=== PATIENT | male | born 1980 | race Caucasian/White ===

== ENCOUNTER 2017-08-25 18:36 | Emergency (ER) | payer MEDICAID, OTHER ==
[2017-08-25 18:55] VITALS: RESP 16
--- NOTE | 2017-08-25 20:16 | EDPHY ---
H & P Time Seen by Provider: 08/25/17 18:49 HPI/ROS: This patient was at work on a ladder that was placed on a deck and the ladder tipped over as it collapsed-toe scoping latter causing the patient to fall onto his left hip and strike his occiput against the wooden deck. He was briefly dazed but had no loss of consciousness. He complains of a occipital headache 5/ 10 intensity, posterior neck pain 5/10 intensity and 6/10 left lateral hip pain with worsening pain when he walks. He took 800 mg of Motrin and 2 Tylenol prior to arrival with partial relief of symptoms. The incident occurred at 4: 30 p.m. the day of evaluation. He came here by private vehicle for further evaluation. ROS: Constitutional: He felt well prior to the fall. HEENT: He denies any visual changes. No tinnitus. No dental injuries or nasal injuries. Neuro: No confusion. No focal weakness. No bowel or bladder incontinence. No LOC. Musculoskeletal: No extremity injuries other than the left hip. Integumentary: No lacerations or abrasions. 7 point ROS is otherwise negative Past Medical/Surgical History: IV drug abuse. He reports his last use of IV drugs was last October. However , he admits shooting IV ice water explaining that he feels still at an addiction to the procedure of shooting IV drugs. He admits that he does not use sterile technique with this. Social History: IV drug abuse. He reports no drug abuse in the last few months and no IV drug abuse since last October though is still injecting IV ice water as noted above. Smoking Status: Heavy smoker Physical Exam: Physical exam: Vital signs are normal General: Patient is in no acute distress. HEENT: Is no external evidence of trauma on exam except for occipital tenderness without significant hematoma, laceration or abrasion. Nose atraumatic. Ears: Clear bilaterally with no hemotympanum. Oropharynx: No dental trauma or malocclusion. No intraoral lacerations. Eyes: Pupils are equal and reactive to light. Extraocular motions are intact. Optic fundi: Clear with no papilledema or hemorrhage. Neck: Patient has paraspinous muscular tenderness bilaterally that extends the trapezium more than midline tenderness. He has mild midline tenderness. After neck is radiographically cleared, patient maintains good range of motion without significant increase in his pain. Lungs: Clear to auscultation bilaterally Cardiac: Regular rate and rhythm no murmur gallop or rub. Chest: Nontender. Abdomen: Soft nontender no organomegaly Back: Nontender Pelvis: No instability. No pain with anterior compression of iliac crest sore pubic symphysis. Skin: Track beach in the antecubital regions Extremities: Atraumatic except for left hip Left hip: No for shortening of the left leg or malrotation. Patient has lateral tenderness to the hip. Neuro: GCS of 15. Cranial nerves II through XII intact. Cerebellar exam is normal as judged by symmetric rapid hand movements bilaterally. No pronator drift. Patient maintains 2+ symmetric brachioradialis, biceps, triceps and patellar DTRs bilaterally. No sensory or motor deficits are appreciated. Initial differential diagnosis: Concussion without LOC, doubt cerebral contusion or skull fracture, cervical muscle strain, doubt cervical fracture, left hip contusion, doubt hip fracture Constitutional: Initial Vital Signs Temperature (C) 36.6 C 08/25/17 18:48 Heart Rate 95 08/25/17 18:48 Respiratory Rate 16 08/25/17 18:48 Blood Pressure 121/79 H 08/25/17 18:48 O2 Sat (%) 95 08/25/17 18:48 O2 Delivery Mode Room Air Allergies/Adverse Reactions: No Known Allergies Allergy (Verified 08/25/17 18:47) Home Medications: Medication Instructions Recorded Suboxone 8 mg-2 mg Tablet 08/25/17 Tizanidine HCl [Zanaflex] 4 mg PO TID PRN #20 capsule 08/25/17 MDM/Departure - MDM Diagnostics: Cervical spine x-rays: Negative for fracture by my interpretation Left hip x-rays: Negative for fracture by my interpretation Imaging Results: Imaging Impressions Cervical Spine X-Ray 08/25/17 19:16 Impression: Negative for fracture. Hip X-Ray 08/25/17 19:17 Impression: Negative for fracture. Imaging: I viewed and interpreted images myself ED Course/Re-evaluation: Discussion: Patient is admitted findings are consistent with concussion without LOC without any red flag findings-no perseveration, no focal findings or other concerning findings. We ruled out cervical fracture with x-rays. He has no radiculopathy on exam. Hip findings are consistent with contusion without evidence of fracture or other concerning injuries. I strongly urged the patient to stop shooting any substances in his veins including sterile water explaining the risk of bacteremia, endocarditis etc. He absolutely cannot resist sheeting IV ice water, I urged him to use sterile technique including alcohol swab. - Depart Disposition: Home, Routine, Self-Care Clinical Impression: Concussion Qualifiers: Encounter type: initial encounter Loss of consciousness presence/duration: without LOC Qualified Code(s): S06.0X0A - Concussion without loss of consciousness, initial encounter Cervical muscle strain Qualifiers: Encounter type: initial encounter Qualified Code(s): S16.1XXA - Strain of muscle, fascia and tendon at neck level, initial encounter Contusion, hip Qualifiers: Encounter type: initial encounter Laterality: left Qualified Code(s): S70.02XA - Contusion of left hip, initial encounter Condition: Good Instructions: Tizanidine (By mouth), Cervical Strain (ED), Concussion (ED) Additional Instructions: Diagnoses: 1. Concussion 2. Neck muscle strain 3. Hip contusion Plan: No work for the next 2-3 days. Follow up with work comp clinic for recheck Tylenol ibuprofen for pain as needed Skelaxin muscle relaxant in addition if needed for neck pain. Avoid activities but she risk for recurrent head injury for 7 days after resolution of her current symptoms. Return emergency department if he develops unbearable headache despite over-the- counter medications, vomiting more than twice, confusion or other concerns. Prescriptions: Tizanidine HCl [Zanaflex] 4 mg PO TID PRN #20 capsule PRN Reason: muscle spasm Referrals: NONE *PRIMARY CARE P,. [Primary Care Provider] - As per Instructions
[2017-08-25 20:32] VITALS: BP 132/76; PULSE 88; TEMP 98.4; O2SAT 96
== END 2017-08-25 20:32 | disposition home or self-care (01) ==
LOC: CED 18:36
DX: S06.0X0A Concussion without loss of consciousness, initial encounter (principal); S16.1XXA Strain of muscle, fascia and tendon at neck level, initial encounter; S70.02XA Contusion of left hip, initial encounter; F17.200 Nicotine dependence, unspecified, uncomplicated; W11.XXXA Fall on and from ladder, initial encounter
CPT/HCPCS: 72050-PO; 73502-PO

== ENCOUNTER 2018-06-05 18:48 | Emergency (ER) | payer MEDICAID ==
[2018-06-05 19:02] VITALS: BP 118/88
--- NOTE | 2018-06-05 19:14 | EDPHY ---
H & P Time Seen by Provider: 06/05/18 19:03 HPI/ROS: CHIEF COMPLAINT: Insect sting HISTORY OF PRESENT ILLNESS: Patient presents with insect sting which he thought was a bee or a wasp to his left forearm about 1 hr ago. He presents because he had a severe reaction about 20 years ago, and wants to make sure that that was not happening again. Note he does not have throat tightness or wheezing or vomiting or urticaria. 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 Patient has a less than 1 mm punctum on the left forearm without surrounding induration or erythema or a wheal. No urticaria. Normal pharynx without stridor or drooling, not hoarse. Uvula midline and normal. No wheezing. Emergency Department course/MDM: Patient presents with insect sting but without signs of systemic or local allergic reaction. Reassured, symptomatic treatment only. Smoking Status: Heavy smoker Constitutional: Initial Vital Signs Temperature (C) 36.7 C 06/05/18 19:00 Heart Rate 100 06/05/18 19:00 Respiratory Rate 16 06/05/18 19:00 Blood Pressure 118/88 H 06/05/18 19:00 O2 Sat (%) 97 06/05/18 19:00 O2 Delivery Mode Room Air Allergies/Adverse Reactions: bee venom protein (honey bee) Allergy (Verified 06/05/18 18:59) Home Medications: Medication Instructions Recorded Abilify 05/13/18 Buspar (*) 05/13/18 Prozac 10 MG (*) 05/13/18 METHADONE HCL 06/05/18 MDM/Departure - Depart Disposition: Home, Routine, Self-Care Clinical Impression: Insect sting Qualifiers: Encounter type: initial encounter Injury intent: undetermined intent Qualified Code(s): T63.484A - Toxic effect of venom of other arthropod, undetermined, initial encounter Condition: Good Instructions: Insect Bite or Sting (ED) Referrals: Deepali Mao MD [[facility] [place]] - As per Instructions [facility],. [Clinic] - As per Instructions
== END 2018-06-05 19:19 | disposition home or self-care (01) ==
DX: T63.484A Toxic effect of venom of other arthropod, undetermined, initial encounter (principal)

== ENCOUNTER 2019-03-11 20:32 | Emergency (ER) | payer MEDICAID | END 2019-03-11 22:42 | disposition home or self-care (01) | LOC: CED 20:32 ==